=== PATIENT | male | born 1935 | race Caucasian/White ===

== ENCOUNTER → 2016-09-09 | Outpatient (CLI) | payer MEDICARE | END | disposition home or self-care (01) | LOC: GMAB 10:12 | PROVIDERS: ATTEND Family Medicine | DX: Z12.5 Encounter for screening for malignant neoplasm of prostate (principal); I10 Essential (primary) hypertension | CPT/HCPCS: 84443; G0103 ==

== ENCOUNTER → 2017-09-13 | Outpatient (CLI) | payer MEDICARE | LOC: GMAB 11:12 | PROVIDERS: ATTEND Family Medicine | DX: I10 Essential (primary) hypertension (principal); Z12.5 Encounter for screening for malignant neoplasm of prostate | CPT/HCPCS: 84443; G0103 ==

== ENCOUNTER → 2018-09-21 | Outpatient (CLI) | payer MEDICARE, OTHER | LOC: GMAE 10:44 | PROVIDERS: ATTEND Family Medicine | DX: R53.81 Other malaise (principal); I10 Essential (primary) hypertension; Z12.5 Encounter for screening for malignant neoplasm of prostate | CPT/HCPCS: 84443; G0103 ==

== ENCOUNTER → 2018-10-10 | Outpatient (CLI) | payer MEDICARE, OTHER ==
--- NOTE | 2018-10-10 18:10 | CT ---
EXAM: CT Angiography Chest With Intravenous Contrast CLINICAL HISTORY: 83 years old and is Male; CHEST PAIN TECHNIQUE: Axial computed tomographic angiography images of the chest with intravenous contrast using pulmonary embolism protocol. Sagittal and coronal reformatted images were created and reviewed. Sagittal and coronal reformatted images were created and reviewed. This CT exam was performed using one or more of the following dose reduction techniques: automated exposure control, adjustment of the mA and/or kV according to patient size, and/or use of iterative reconstruction technique. MIP reconstructed images were created and reviewed. COMPARISON: CT abdomen 06/20/2015 FINDINGS: Limitations: None. Pulmonary arteries: Unremarkable. No pulmonary embolism. Aorta: Ectatic aorta. Ascending aorta measures 3.8 cm maximal dimension. No dissection. Lungs: Unremarkable. No mass. No consolidation. Pleural space: Unremarkable. No significant effusion. No pneumothorax. Heart: Cardiomegaly. No significant pericardial effusion. No evidence of RV dysfunction. No CT follow-up is considered necessary. Bones/joints: No acute fracture. No dislocation. Soft tissues: Unremarkable. Lymph nodes: There are a few prominent unenlarged mediastinal lymph nodes likely reactive. Liver: There are multiple solid lesions in the liver measuring up to 3.0 x 3.1 cm. There is a 1.7 cm left hepatic lobe cyst. Pancreas: Heterogeneous appearance of the pancreas with possible ductal dilatation. Kidneys and ureters: There is a 1.9 cm benign cyst in the right kidney. IMPRESSION: 1. No pulmonary malaise noted. 2. Numerous solid lesions in the liver. Metastatic disease not excluded. 3. Question pancreatic ductal dilatation. It may be of benefit to obtain a dedicated pancreas protocol CT. Electronically signed by: Jamia Celis MD 10/10/2018 6:08 PM CDT
== END ==
LOC: GMAE 15:09
PROVIDERS: ATTEND Family Medicine
DX: R07.2 Precordial pain (principal); K76.9 Liver disease, unspecified

== ENCOUNTER → 2018-10-19 | Outpatient (CLI) | payer MEDICARE, OTHER ==
--- NOTE | 2018-10-19 10:52 | US ---
EXAM DESCRIPTION: Venous,Lower Extremity LT CLINICAL HISTORY: Leg pain COMPARISON: None Available. TECHNIQUE: Left lower extremity venous duplex FINDINGS: Doppler evaluation of the left lower extremity deep veins was performed. Normal color flow is seen in the common femoral, superficial femoral, profunda femoral and greater saphenous veins. Normal flow is seen in the popliteal vein and veins below the knee in the calf. Normal venous compressibility and flow augmentation. IMPRESSION: Negative for evidence of deep venous thrombosis on left lower extremity venous Doppler sonogram. Electronically signed by: Kirit Ogden MD 10/19/2018 10:50 AM CDT
--- NOTE | 2018-10-19 12:47 | US ---
EXAM DESCRIPTION: Venous,Lower Extremity RT CLINICAL HISTORY: Leg pain COMPARISON: None Available. TECHNIQUE: Right lower extremity venous duplex FINDINGS: Doppler evaluation of the right lower extremity deep veins was performed. Normal color flow is seen in the common femoral, superficial femoral, profunda femoral and greater saphenous veins. Normal flow is seen in the popliteal vein. In the right calf, noncompressible right posterior tibial vein is consistent with deep venous thrombosis. I discussed the results with the nurse at Dr. Mauricio's office at 12:44 PM on 10/19/2018. IMPRESSION: Positive DVT in the right calf involving posterior tibial vein. Electronically signed by: Kirit Ogden MD 10/19/2018 12:44 PM CDT
== END ==
LOC: RAD 08:47
PROVIDERS: ATTEND Family Medicine
DX: I82.441 Acute embolism and thrombosis of right tibial vein (principal); M79.605 Pain in left leg

== ENCOUNTER 2018-11-06 21:33 | Observation (INO) | payer MEDICARE, OTHER ==
--- NOTE | 2018-11-06 21:46 | ED.PDOC ---
History of Present Illness - General Chief Complaint: Neuro Symptoms/Deficits Stated Complaint: lightheaded/dysequilibrium Time Seen by Provider: 11/06/18 21:41 Source: patient, family - History of Present Illness Initial Comments: Santiago Dangelo 83 y/o male brought by family to ER with lightheadedness and tends to walk more on his right side and does not feel it until he hits the wall; also noted that he had difficulty comprehending what he was told..No weakness,no blurry vision.no slurred speech,no headaches.Recently diagnosed with pancreatic cancer /liver metastases and DVT right leg.Presently on eliquis 5 mg BID.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 Timing/Duration: waxing and waning, other - 3 days Severity: moderate Episode Description: see hpi Improving Factors: nothing Worsening Factors: nothing Associated Symptoms: other - see hpi Allergies/Adverse Reactions: Allergies NO KNOWN ALLERGY Allergy (Verified 11/06/18 21:53) Home Medications: Ambulatory Orders Acetaminophen W/ Codeine [Tylenol W/ CODEINE #3] 2 ea PO Q6HRS PRN 11/06/18 Amlodipine Besylate [Norvasc] 10 mg PO DAILY 11/06/18 Apixaban [Eliquis] 5 mg PO BID 11/06/18 Dutasteride 0.5 mg PO DAILY 11/06/18 Telmisartan 40 mg PO DAILY 11/06/18 Review of Systems - Review of Systems Constitutional: States: no symptoms reported EENTM: States: no symptoms reported Respiratory: States: no symptoms reported Cardiology: States: no symptoms reported Gastrointestinal/Abdominal: States: no symptoms reported Genitourinary: States: no symptoms reported Musculoskeletal: States: no symptoms reported Skin: States: no symptoms reported Neurological: States: see HPI All other Systems: Reviewed and Negative, No Change from Baseline Past Medical History (General) - Patient Medical History Hx Cancer: Yes - pancreas w/metastases to liver Hx Other PMH: Yes - DVT,MIKAYLA Surgical History: no surgical history - Social History Hx Tobacco Use: No Hx Physical Abuse: No Hx Emotional Abuse: No - Activities of Daily Living Patient Lives Alone: No Family Medical History - Family History Mother Family History: Unknown Hx Cardiac Disease: Yes - dad-[place] Hx Family Cancer: Yes - colon-brother Physical Exam - Physical Exam General Appearance: Alert, Comfortable, No apparent distress Eye Exam: bilateral normal ENT Exam: normal ENT inspection, hearing grossly normal Neck: supple, normal inspection, trachea midline Respiratory: chest non-tender, lungs clear, normal breath sounds Cardiovascular/Chest: normal peripheral pulses, regular rate, rhythm, no murmur Peripheral Pulses: radial,right: 2+, radial,left: 2+ Gastrointestinal/Abdominal: non tender, soft, no organomegaly Back Exam: no CVA tenderness, no vertebral tenderness Extremities Exam: non-tender, no evidence of injury Mental Status: alert, oriented x 3, other - 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 Exam: normal hearing, normal speech, PERRL Coordination/Gait: normal gait Motor/Sensory: no motor deficit, no sensory deficit, no pronator drift Skin Exam: normal color, warm/dry Progress - Progress Progress: 11/06/18 22:47 Vital Signs - 8 hr 11/06/18 21:39 Temperature 98.8 F Pulse Rate [ 83 monitor] Respiratory 18 Rate Blood Pressure 147/79 [Left Arm] O2 Sat by Pulse 94 L Oximetry - Results/Orders Results/Orders: 11/06/18 21:47 IV Care:Saline Lock per Protoc QSHIFT Laboratory Results - last 24 hr 11/06/18 11/06/18 11/06/18 22:30 22:30 23:02 WBC 10.2 RBC 4.33 L Hgb 14.2 Hct 41.3 L MCV 95.5 H MCH 32.9 H MCHC 34.4 RDW 13.3 Plt Count 173 MPV 8.1 Absolute Neuts (auto) 8.00 H Absolute Lymphs (auto) 1.00 Absolute Monos (auto) 1.00 H Absolute Eos (auto) 0.20 Absolute Basos (auto) 0.00 Neutrophils % 78.0 Lymphocytes % 9.6 L Monocytes % 10.1 H Eosinophils % 1.8 Basophils % 0.5 PT 11.0 H INR 1.10 PTT (SP) 26.1 Sodium 132 L Potassium 3.8 Chloride 99 L Carbon Dioxide 22 Anion Gap 14.8 BUN 15 Creatinine 0.68 BUN/Creatinine Ratio 22.1 H Random Glucose 180 H Serum Osmolality 269.9 L Lactic Acid 2.0 Calcium 9.0 Magnesium 2.1 Total Bilirubin 0.8 Direct Bilirubin 0.1 Indirect Bilirubin 0.7 AST 36 ALT 36 Alkaline Phosphatase 101 Creatine Kinase 96 CK-MB (CK-2) 3.1 CK-MB (CK-2) % Not Reportable Troponin I 0.05 Serum Total Protein 6.5 Albumin 4.0 Urine Color Yellow Urine Appearance Clear Urine pH 5.5 Ur Specific Keller 1.010 Urine Protein Negative Urine Glucose (UA) Negative Urine Ketones Negative Urine Blood Trace-intact H Urine Nitrite Negative Urine Bilirubin Negative Urine Urobilinogen 0.2 Ur Leukocyte Esterase Negative Urine RBC 0-1 Urine WBC 0-1 Ur Epithelial Cells 1-3 Urine Bacteria Rare Discuss test results with patient recommended hospital OBS and agree with plan. - EKG/XRAY/CT CT Ordered: Yes - head-no acute infarct or hemorrhage Departure - Departure Clinical Impression: Light headedness, Pancreatic cancer metastasized to liver, History of DVT of lower extremity, On continuous oral anticoagulation Time of Disposition: 23:37 Disposition: Admit Patient Condition: Fair Departure Forms: Patient Portal Self Enrollment Referrals: SHARIF SIMMONS MD [Primary Care Provider] - 1-2 Weeks Home Medications: Ambulatory Orders Acetaminophen W/ Codeine [Tylenol W/ CODEINE #3] 2 ea PO Q6HRS PRN 11/06/18 Amlodipine Besylate [Norvasc] 10 mg PO DAILY 11/06/18 Apixaban [Eliquis] 5 mg PO BID 11/06/18 Dutasteride 0.5 mg PO DAILY 11/06/18 Telmisartan 40 mg PO DAILY 11/06/18 Decision To Admit - Decistion To Admit Decision to Admit Reason: Admit from ER Decision to Admit Date: 11/06/18 - D/W Yovani Jacobo-ANP/Hospitalist Decision to Admit Time: 23:35
[2018-11-06] MEDS ORDERED: SODIUM CHLORIDE 0.9% 500ML 500 ML IVS ONE (21:47)
--- NOTE | 2018-11-06 22:22 | CT ---
EXAM DESCRIPTION: Head CLINICAL HISTORY: 83 years Male unsteady gait, dizziness since Wednesday COMPARISON: None TECHNIQUE: Images were obtained in axial, sagittal, and coronal planes. This exam was performed according to our departmental dose-optimization program which includes use of Automated Exposure Control, adjustment of the mA and/or kV according to patient size and/or use of iterative reconstruction technique. FINDINGS: Ventricular system is enlarged. Moderate prominence of the cortical sulci. Moderate cerebral volume loss. No abnormal areas of increased attenuation seen. No extra-axial fluid collections noted. No evidence for skull fracture. Unremarkable paranasal sinuses. Symmetric aeration mastoid air cells bilaterally. IMPRESSION: No acute intracranial abnormality. No evidence for hemorrhage, mass lesion, or large acute infarction. Electronically signed by: Leatha Camargo MD 11/06/2018 10:21 PM CDT
[2018-11-07] MEDS ORDERED: SODIUM CHLORIDE 0.9% (FLUSH) 10 ML SYG IV PRN (01:08)
[2018-11-07] MEDS ORDERED: DEX 5% W/NACL 0.9% 1000ML 1,000 ML IVS PRN (01:17)
[2018-11-07] MEDS ORDERED: IV SET AND CAP CHANGE INJ INJ SCH (01:30)
[2018-11-07 08:23] VITALS: TEMP 97.8
--- NOTE | 2018-11-07 11:40 | MRI ---
EXAM DESCRIPTION: Brain w/wo Contrast: Magnetic Resonance Imaging. CLINICAL HISTORY: 83 years Male Ataxia, dizziness COMPARISON: Head CT scan 11/06/2018. TECHNIQUE: Multiplanar, high-field MRI, multiple conventional sequences, without and with gadolinium IV contrast. No adverse reactions. Multiple axial diffusion sequences. FINDINGS: Multiple small foci of bright signal on the diffusion-weighted [id number] sequences in the cortical reyes matter left occipital lobe parasagittal at the level of the ventricles 1-2 lesions similar location right occipital lobe also right frontoparietal cortex near the vertex and 8 single lesion left cerebellar hemisphere. These lesions are not associated with hemorrhage or significant mass effect. No abnormal contrast enhancement. Otherwise, multiple foci of chronic hyperintense FLAIR and T2-weighted signal in the periventricular white matter and subcortical white matter junctions of the cerebral hemispheres. Involvement of the frontal parietal and occipital lobes and the centrum semiovale. Less involvement of the temporal lobes . Similar signal posterior bilateral basal ganglia. No hemorrhage, no cerebral edema, no mass-effect. Normal contrast enhancement. Normal signal in the brainstem or cerebellar hemisphere. No hemorrhage, no cerebral edema, no mass-effect. Normal contrast enhancement. Concordance of the diffusion and non-diffusion sequences with no evidence of acute or subacute infarction. Cortical sulci, ventricles, and other CSF spaces, and the subdural spaces are age appropriate in configuration. No effacement or displacement. No midline shift. No extra-axial hemorrhage. Normal contrast enhancement. Normal flow signal void in the major vessels of the [place], and the venous sinuses. Some sequences show abnormal flow in the left cerebellar artery; contrast sequences show contrast in intermittent segments of the left cerebellar artery as it crosses across the midline to form the left basilar artery. IACs are symmetric bilaterally. No fluid in the bilateral mastoid air cells. No mass effect in the bilateral Cerebellopontine angles. Normal contrast enhancement. Pituitary gland occupies most of the sella. Normal contrast enhancement. Base of the cerebellar tonsils is above the foramen magnum. Minimal mucoperiosteal thickening in the bilateral ethmoid and right maxillary paranasal sinuses. The bony calvarium is intact. IMPRESSION: 1. 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 Not associated with hemorrhage, mass effect, or abnormal enhancement. 2. Left vertebral artery flow is slow but normal contrast flow with no no intraluminal lesions. Status of smaller terminal arterial flow in the infarcted regions cannot be determined. 3. Chronic bilateral periventricular white matter and subcortical white matter ischemic changes which are most likely age-related and/or cerebral microvascular disease. 4. Minimal sinusitis paranasal region. CRITICAL COMMUNICATION: The critical value was communicated by text message by Dr. Devlin at 1112 hours with text acknowledgment by CLARISA Rico, Mr. Jacobo's associate, at approximately 1117 hours, on 11/07/2018. Electronically signed by: Keagan Devlin MD 11/07/2018 11:38 AM CDT
--- NOTE | 2018-11-07 15:15 | US ---
EXAM DESCRIPTION: Venous,Lower Extremity RT: ULTRASOUND. CLINICAL HISTORY: Hx of DVT right posterior tibial vein COMPARISON: . None Available. TECHNIQUE: Holliday-scale and doppler sonographic evaluation of the deep venous system of the right lower extremity. FINDINGS: Doppler evaluation shows normal color flow and normal phasicity and augmentation of the right common femoral vein, femoral vein, popliteal vein, greater/lesser saphenous vein, . Echogenic thrombus is still noted in the right posterior tibial vein. The right lower extremity deep veins were completely compressible; normal occlusion with transducer pressure. Holliday-scale survey showed no echogenic thrombus within these veins. Incomplete compression of the right posterior tibial vein. Decreased venous waveform and color. IMPRESSION: 1. Duplex ultrasound evaluation of the right lower extremity deep venous system showing partial thrombus remaining in the right posterior tibial vein. 2. No evidence of thrombosis in the remaining veins of the deep venous system of the right lower extremity. Electronically signed by: Keagan Devlin MD 11/07/2018 3:13 PM CDT
--- NOTE | 2018-11-07 15:55 | US ---
EXAM DESCRIPTION: Carotid Duplex: ULTRASOUND. CLINICAL HISTORY: 83 years Male Ataxia, dizziness COMPARISON: Right lower extremity deep venous duplex ultrasound. On the same visit TECHNIQUE: Transcutaneous scanning utilizing reyes-scale and Doppler modes to evaluate the bilateral carotid systems and vertebral arteries. Percentage of diameter of stenosis or no stenosis recorded will be based upon NASCET criteria. FINDINGS: Peak systolic/end diastolic (CM-Sec) CCA Right 63/8 Left 74/8. ICA Right proximal 44/7, distal 44/4. Left proximal 44/9, mid 36/8. Vertebral Right not visualized Left 39/13. ECA (PS Only) Right 39 left 70. ICA/CCA peak systolic ratio: Right 0.7 Left 0.6 ICA/CCA end diastolic ratio: Right 0.6 Left 1.1 Vertebral arteries: Left antegrade flow. Right vertebral artery was not visualized. Comments: Bilateral atherosclerotic calcifications more prominent on the right. Area stenosis of the right common carotid bulb is 22%. Diameter stenosis 32%. Spectral broadening in the proximal and mid left ICA. IMPRESSION: 1. Doppler evaluation of the bilateral carotid systems and vertebral arteries shows no hemodynamically significant stenoses. 2. Moderate amount plaque seen in the carotid arteries bilaterally. Left vertebral artery showed antegrade-cephalad flow; right vertebral artery was not visualized. Electronically signed by: Keagan Devlin MD 11/07/2018 3:53 PM CDT
[2018-11-07 17:00] VITALS: O2SAT 95
[2018-11-07 18:13] VITALS: BP 170/83
[2018-11-07] MEDS ORDERED: APIXABAN 2.5 MG TAB PO ONE ×2 (18:21→18:42)
--- NOTE | 2018-12-21 16:52 | SSS ---
SUPERVISING PHYSICIAN: Bravo Madden MD DISCHARGE DIAGNOSES: 1. 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 2. Pancreatic cancer with liver metastases recently diagnosed. He is being followed by Dr. Kisha Kebede. 3. 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 4. History of hypertension, controlled on medication. 5. MIKAYLA, presently not wearing his C-PAP, awaiting an appointment with his international travel consultant for adjustments to his machine. 6. History of West Nile virus in 2003. HISTORY OF PRESENT ILLNESS: This is an 83 year-old male patient who was brought into the Emergency Room by family members and walking to the right side that has been present for 3 days. He felt as though he was having difficulty comprehending things that he was told to do and he was also walking into the bueno. No other noted weakness, no blurry vision, no slurred speech, no headache. He was recently diagnosed with pancreatic cancer with liver metastases as well as the DVT of his right lower leg. Due to his symptoms, his locomotive engineer diesel recommended that he come to the Emergency Room, he is on an anticoagulant. For his pancreatic cancer, he is followed by Dr. Kisha Kebede who on account of his diagnosis offered palliative treatment or he could go for aggressive treatments at [facility] and he has elected to do that. In the Emergency Room, his initial vital signs were temperature of 98.8 with heart rate of 83, blood pressure 147/79, respiratory rate 18, oxygen saturation 94% on room air. Lab studies were done and showed WBC at 10,200 with a hemoglobin of 42.2 and hematocrit of 41.3. His sodium was 132, potassium 3.8, chloride 99, carbon dioxide 22, creatinine 0.68. Glucose 180, serum osmolality 269.9. The remainder of his chemistries including his liver panel were within normal limits. His cardiac enzymes were negative. Lactic acid was 2. Urinalysis was unremarkable. He had a head CT in the Emergency Room that showed no acute intracranial abnormality, no evidence for hemorrhage/lesion or large acute infarction. The patient was initially placed in observation in the hospital for TIA-like symptoms as well as further workup. PAST MEDICAL HISTORY: 1. Hypertension. 2. Sleep apnea. 3. Right tibial vein DVT. 4. West Nile virus in 2003. 5. Pancreatic cancer, stage 4 with liver metastases. PAST SURGICAL HISTORY: None. CURRENT MEDICATIONS: 1. Norvasc. 2. Avodart. 3. Telmisartan. 4. Amlodipine. 5. Eliquis. ALLERGIES: No known drug allergies. FAMILY HISTORY: SOCIAL HISTORY: He is retired. He is . He has 2 children. He lives in [place]. He denies any tobacco, ETOH or illicit drug use. REVIEW OF SYSTEMS: GENERAL: Negative for fatigue, fever or weight changes. HEENT: Negative for sinus symptoms, ear pain, vision changes, sore throat. RESPIRATORY: Negative for coughing, wheezing, shortness of breath CARDIAC: Negative for chest pain, palpitations, tachycardia. GI: Negative for nausea, vomiting, diarrhea. GENITOURINARY: Negative for hematuria, dysuria, polyuria. MUSCULOSKELETAL: Negative for arthralgias, myalgias. SKIN: Negative for lesions or rashes. NEUROLOGICAL: As per the history of present illness. Negative for seizures or headaches. PHYSICAL EXAMINATION: VITAL SIGNS: Temperature 97.8, heart rate 74, blood pressure 170/83, respiratory rate 16, oxygen saturation 95% on room air. GENERAL: This is an 83 year-old male patient who is sitting on the side of his hospital bed. He is in no acute distress. HEENT: Normocephalic and atraumatic. Pupils are equal and reactive. Oropharynx is clear. NECK: Supple without mass. CHEST: Essentially clear to auscultation bilaterally. There is equal rise and fall of the chest with inspiration and expiration. CARDIOVASCULAR: Regular rate and rhythm. ABDOMEN: Soft, nondistended, non-tender. Bowel sounds are positive. EXTREMITIES: No cyanosis, clubbing, or edema. His bilateral pedal pulses are ++2. NEUROLOGIC: He is alert and oriented x 3. He does speak in complete sentences. His cranial nerves II through XII are grossly intact. SKIN: Warm and dry. FOLLOWUP LABORATORY: WBC 8.8 with hemoglobin of 13.6, hematocrit 39.9. Chemistry was basically unremarkable. Cholesterol shows a triglyceride 41, LDL 99.9, HDL 31, TSH 3.22. His followup testing shows an echocardiogram with normal left ventricular size and systolic function with a visually estimated ejection fraction of 60 to 65%. He had a brain MRI shows an embolic CVA involving the parasagittal left occipital lobe, posterior lesion in the right occipital lobe, right frontal parietal cortex of the vertex and left subcortical cerebellar hemisphere solo lesion not associated with hemorrhage, mass effect or abnormal enhancement. His carotid ultrasound shows Doppler evaluations of bilateral carotid systems and vertebral arteries show no hemodynamically significant stenosis. His lower extremity ultrasound shows duplex ultrasound evaluation for right lower extremity DVT showing partial thrombus remaining in the right posterior tibial vein. All other labs and films have been reviewed via the EMR. HOSPITAL COURSE: The patient was placed in observation in the hospital. He had no further neurological deficits. His vital signs remained stable. I discussed at length with his family his present care and that he was on the appropriate medications for a stroke and at this point, due to minimal to no neurological deficits that it is recommended that he proceed to [facility] to followup his pancreatic cancer care and that a neurologist at this time would most likely not add any additional medications as he is presently on Eliquis. He will be discharged home today in stable condition. DISCHARGE PLAN: The patient will be discharged home in stable condition. He is to resume his previous diet, his previous medications as well as increase his activity as tolerated. He has a followup appointment with Dr. Mauricio, his primary care physician, on 11/10/18 at 1:30 PM. He is to return to the hospital or followup with Dr. Mauricio or Dr. Kebede for any problems or complications. DISCHARGE MEDICATIONS: 1. Eliquis. 2. Amlodipine. 3. Telmisartan. 4. Dutasteride. 5. Acetaminophen with codeine. #[id number] [facility]
== END 2018-11-07 19:14 | disposition home or self-care (01) ==
LOC: ER 21:33 → MS 23:56
PROVIDERS: ADMIT Nurse Practitioner Acute Care; ATTEND Nurse Practitioner Family
DX: I63.532 Cerebral infarction due to unspecified occlusion or stenosis of left posterior cerebral artery (principal); C25.9 Malignant neoplasm of pancreas, unspecified; C78.7 Secondary malignant neoplasm of liver and intrahepatic bile duct; I82.441 Acute embolism and thrombosis of right tibial vein; I10 Essential (primary) hypertension; G47.33 Obstructive sleep apnea (adult) (pediatric); I45.10 Unspecified right bundle-branch block; I36.1 Nonrheumatic tricuspid (valve) insufficiency; I35.1 Nonrheumatic aortic (valve) insufficiency; I65.23 Occlusion and stenosis of bilateral carotid arteries; Z79.01 Long term (current) use of anticoagulants; Z79.899 Other long term (current) drug therapy; Z99.89 Dependence on other enabling machines and devices; Z86.19 Personal history of other infectious and parasitic diseases; Z82.49 Family history of ischemic heart disease and other diseases of the circulatory system; Z80.0 Family history of malignant neoplasm of digestive organs
CPT/HCPCS: J7040; J7799; 80053; 80061; 36415 ×4; 82550; 80048; 82553; 85025 ×2; 85730; 85610; 84484; 81001; 80076; 83735; 84443; 83605; 70450; 93880; 93971; 94760 ×4; 99285; 93306; 70553; 93005; G0378

== ENCOUNTER 2018-11-17 11:21 | Emergency (ER) | payer MEDICARE, OTHER ==
--- NOTE | 2018-11-17 11:30 | ED.PDOC ---
History of Present Illness - General Chief Complaint: GI Problem Stated Complaint: nausea/vomiting Time Seen by Provider: 11/17/18 11:29 Source: patient Exam Limitations: no limitations - History of Present Illness Initial Comments: Santiago Dangelo 83 y/o male brought by EMS to [facility] ER with N/V and weakness this AM.Had been recently diagnose with Pancreatic CA with Lver metastasis and scheduled to go to [facility] next week for further evaluation/treatment.Also has history of DVT presently on ELIQUIS 5 mg BID.Had nuclear scan by his captain's assistant in October but no scheduled follow up made. Timing/Duration: 1-3 hours Severity: moderate Improving Factors: nothing Worsening Factors: nothing Associated Symptoms: malaise Allergies/Adverse Reactions: Allergies NO KNOWN ALLERGY Allergy (Verified 11/17/18 11:48) Home Medications: Ambulatory Orders Acetaminophen W/ Codeine [Tylenol W/ CODEINE #3] 2 ea PO Q6HRS PRN 11/06/18 Amlodipine Besylate [Norvasc] 10 mg PO DAILY 11/06/18 Apixaban [Eliquis] 5 mg PO BID 11/06/18 Dutasteride 0.5 mg PO DAILY 11/06/18 Telmisartan 80 mg PO DAILY 11/06/18 Review of Systems - Review of Systems Constitutional: States: see HPI, weakness Gastrointestinal/Abdominal: States: see HPI, vomiting, other - pancreatic CA All other Systems: Reviewed and Negative, No Change from Baseline Past Medical History (General) - Patient Medical History Hx Seizures: No Hx Stroke: No Hx Dementia: No Hx Asthma: No Hx of COPD: No Hx Cardiac Disorders: No Hx Congestive Heart Failure: No Hx Pacemaker: No Hx Hypertension: Yes Hx Thyroid Disease: No Hx Diabetes: No Hx Gastroesophageal Reflux: No Hx Renal Disease: No Hx Cancer: Yes - pancreas w/metastases to liver Hx of HIV: No Hx Hepatitis C: No Hx MRSA: No Surgical History: no surgical history - Vaccination History Hx Tetanus, Diphtheria Vaccination: No Hx Influenza Vaccination: Yes Hx Pneumococcal Vaccination: Yes - Social History Hx Tobacco Use: No Hx Alcohol Use: No Hx Substance Use: No Hx Physical Abuse: No Hx Emotional Abuse: No Family Medical History - Family History Mother Family History: Unknown Hx Cardiac Disease: Yes - dad-[place] Hx Family Cancer: Yes - colon-brother Physical Exam - Physical Exam General Appearance: Alert, Anxious, No apparent distress Eye Exam: bilateral normal Ears, Nose, Throat: hearing grossly normal, normal ENT inspection Neck: supple, normal inspection Respiratory: chest non-tender, lungs clear, normal breath sounds Cardiovascular/Chest: normal peripheral pulses, regular rate, rhythm, no murmur Peripheral Pulses: radial,right: 2+, radial,left: 2+ Gastrointestinal/Abdominal: non tender, soft, no organomegaly Back Exam: no CVA tenderness, no vertebral tenderness Extremity: no pedal edema, no calf tenderness Neurologic: alert, oriented x 3 Skin Exam: normal color, warm/dry Progress - Progress Progress: 11/17/18 12:58 Laboratory Tests 11/17/18 11/17/18 11/17/18 12:00 Unknown Unknown WBC 13.0 H RBC 4.62 L Hgb 15.0 Hct 44.5 MCV 96.3 H MCH 32.5 H MCHC 33.8 RDW 13.2 Plt Count 196 MPV 8.2 Absolute Neuts (auto) 10.60 H Absolute Lymphs (auto) 1.00 Absolute Monos (auto) 1.20 H Absolute Eos (auto) 0.10 Absolute Basos (auto) 0.10 Neutrophils % 81.8 H Lymphocytes % 7.8 L Monocytes % 9.1 H Eosinophils % 0.9 L Basophils % 0.4 PT 11.1 H INR 1.11 PTT (SP) 25.4 Sodium 131 L Potassium 4.2 Chloride 96 L Carbon Dioxide 23 Anion Gap 16.2 BUN 14 Creatinine 0.78 BUN/Creatinine Ratio 17.9 Random Glucose 208 H Serum Osmolality 269.2 L Lactic Acid 1.9 Calcium 9.3 Magnesium 2.1 Total Bilirubin 0.9 Direct Bilirubin 0.2 Indirect Bilirubin 0.7 AST 69 H ALT 58 Alkaline Phosphatase 118 Creatine Kinase 820 H* CK-MB (CK-2) 5.4 H* CK-MB (CK-2) % 0.66 Troponin I 0.12 H* B-Natriuretic Peptide 28.2 Serum Total Protein 7.5 Albumin 4.3 Lipase 23 - Results/Orders Results/Orders: 11/17/18 11:31 IV Care:Saline Lock per Protoc QSHIFT URINALYSIS Stat Laboratory Results - last 24 hr 11/17/18 11/17/18 11/17/18 12:00 Unknown Unknown WBC 13.0 H RBC 4.62 L Hgb 15.0 Hct 44.5 MCV 96.3 H MCH 32.5 H MCHC 33.8 RDW 13.2 Plt Count 196 MPV 8.2 Absolute Neuts (auto) 10.60 H Absolute Lymphs (auto) 1.00 Absolute Monos (auto) 1.20 H Absolute Eos (auto) 0.10 Absolute Basos (auto) 0.10 Neutrophils % 81.8 H Lymphocytes % 7.8 L Monocytes % 9.1 H Eosinophils % 0.9 L Basophils % 0.4 PT 11.1 H INR 1.11 PTT (SP) 25.4 Sodium 131 L Potassium 4.2 Chloride 96 L Carbon Dioxide 23 Anion Gap 16.2 BUN 14 Creatinine 0.78 BUN/Creatinine Ratio 17.9 Random Glucose 208 H Serum Osmolality 269.2 L Lactic Acid 1.9 Calcium 9.3 Magnesium 2.1 Total Bilirubin 0.9 Direct Bilirubin 0.2 Indirect Bilirubin 0.7 AST 69 H ALT 58 Alkaline Phosphatase 118 Creatine Kinase 820 H* CK-MB (CK-2) 5.4 H* CK-MB (CK-2) % 0.66 Troponin I 0.12 H* B-Natriuretic Peptide 28.2 Serum Total Protein 7.5 Albumin 4.3 Lipase 23 - EKG/XRAY/CT EKG: Sinus, RBBB, nonspecific ST T wave Chg, ST depression - inferolateral leads Comments: HR-68 Departure - Departure Clinical Impression: Non-ST elevation (NSTEMI) myocardial infarction, Pancreatic cancer metastasized to liver Nausea & vomiting Qualifiers: Vomiting type: unspecified Vomiting Intractability: non-intractable Qualified Code(s): R11.2 - Nausea with vomiting, unspecified Time of Disposition: 13:39 Disposition: Transfer to Hospital Condition: Fair Departure Forms: ED Discharge - Pt. Copy, Patient Portal Self Enrollment Referrals: SHARIF SIMMONS MD [Primary Care Provider] - 1-2 Weeks Home Medications: Ambulatory Orders Acetaminophen W/ Codeine [Tylenol W/ CODEINE #3] 2 ea PO Q6HRS PRN 11/06/18 Amlodipine Besylate [Norvasc] 10 mg PO DAILY 11/06/18 Apixaban [Eliquis] 5 mg PO BID 11/06/18 Dutasteride 0.5 mg PO DAILY 11/06/18 Telmisartan 80 mg PO DAILY 11/06/18 Transfer to Outside Facility - Transfer Information Accepting Provider:: -Electroneurodiagnostic Technician Accepting Facility: [facility] Reason for Transfer: required specialist not available - SALES DEVELOPMENT ASSOCIATE
[2018-11-17] MEDS ORDERED: LACTATED RINGERS 1,000 ML IVS ONE (11:31)
[2018-11-17] MEDS ORDERED: ASPIRIN (CHEWABLE) 81 MG TAB ONE (12:23)
[2018-11-17] MEDS ORDERED: ASPIRIN (CHEWABLE) 81 MG TAB PO ONE (12:23)
--- NOTE | 2018-11-17 14:07 | RAD ---
EXAM DESCRIPTION: Chest,1 View CLINICAL HISTORY: nausea, NSTEMI COMPARISON: Chest radiograph dated October 10, 2018 TECHNIQUE: Single upright portable frontal view of the chest FINDINGS: Tortuosity of thoracic aorta. Cardiac silhouette shows stable cardiomegaly. Pulmonary vascularity is within normal limits. Shallow lung volumes with associated bronchovascular crowding. Subtle linear opacities in the medial bilateral lung bases most compatible with atelectasis. Otherwise, lungs show no confluent infiltrates. Costophrenic angles are sharp. No pneumothorax. Visualized osseous structures show no destructive lesions. Included upper abdomen show no acute abnormality. IMPRESSION: 1. Stable cardiomegaly. No congestive heart failure. 2. Subtle linear opacities medial bilateral lung bases most compatible with atelectasis. Otherwise, lungs show no confluent infiltrates. Electronically signed by: Chan Mejia MD 11/17/2018 2:05 PM CDT
[2018-11-17 14:13] VITALS: TEMP 98.1
[2018-11-17 14:37] VITALS: BP 157/86; O2SAT 93
== END 2018-11-17 14:58 | disposition short-term general hospital (02) ==
LOC: ER 11:21
DX: I21.4 Non-ST elevation (NSTEMI) myocardial infarction (principal); R11.2 Nausea with vomiting, unspecified; C25.9 Malignant neoplasm of pancreas, unspecified; C78.7 Secondary malignant neoplasm of liver and intrahepatic bile duct; I45.10 Unspecified right bundle-branch block; I10 Essential (primary) hypertension; Z79.899 Other long term (current) drug therapy; Z86.718 Personal history of other venous thrombosis and embolism; Z79.01 Long term (current) use of anticoagulants
CPT/HCPCS: 36415; 71045; 80048; 80076; 81001; 82550; 82553; 83605; 83690; 83880; 84484; 85025; 85610; 85730; 93005; J7120